=== PATIENT | male | born 1935 | race Caucasian/White ===

== ENCOUNTER 2018-01-31 13:28 | Inpatient (IN) | payer OTHER ==
[~2018-01-31] VITALS: Ht 179.1 cm; Wt 83.7 kg
[2018-01-31] MEDS ORDERED: SODIUM CHLORIDE 0.9% 1000ML 1,000 ML IV ONE ×2 (13:44→20:11)
[2018-01-31 14:48] LABS: HEMATOCRIT 36.8 % (42-54); MEAN CORPUSCULAR HEMOGLOBIN 31.3 pg (27.0-33.0); MEAN CORPUSCULAR HGB CONC 33.5 g/dL (32.0-36.0); MEAN CORPUSCULAR VOLUME 93.4 fL (79-99); PLATELET COUNT (AUTO) 179 K/uL (130-400); RED BLOOD CELL COUNT(AUTO) 3.94 MIL/uL (4.50-6.20); RED CELL DISTRIBUTION WIDTH 14.2 % (11.0-15.5); WHITE BLOOD COUNT (AUTO) 6.4 K/uL (4.8-10.8)
[2018-01-31 15:01] LABS: CARBON DIOXIDE 25 mmol/L (21-32); CHLORIDE 100 mmol/L (101-111); GLOMERULAR FILTR. RATE CALC 76 mL/min (>60); GLUCOSE,RANDOM 113 mg/dL (70-105); POTASSIUM 3.6 mmol/L (3.5-5.1); SODIUM SERUM 137 mmol/L (136-145); UREA NITROGEN, BLOOD 26 mg/dL (7-18)
[2018-01-31 15:06] LABS: ALANINE AMINOTRANSFERASE 13 U/L (12-78); ALBUMIN 2.2 g/dL (3.5-5.0); ASPARTATE AMINOTRANSFERASE 19 U/L (10-37); BILIRUBIN,TOTAL 1.7 mg/dL (0.2-1.0); CREATINE KINASE, TOTAL 54 U/L (21-232); TOTAL PROTEIN, SERUM 5.3 g/dL (6.0-8.3)
[2018-01-31 15:12] LABS: LIPASE < 50 U/L (114-286)
[2018-01-31 16:04] LABS: APPEARANCE,URINE Clear (CLEAR); BILIRUBIN,URINE Moderate (NEGATIVE); GLUCOSE, URINE (UA) Negative (NEGATIVE); KETONES,URINE Trace mg/dL (NEGATIVE); LEUKOCYTE ESTERASE ,URINE Small (NEGATIVE); NITRATE,URINE Positive (NEGATIVE); OCCULT BLOOD,URINE Negative (NEGATIVE); PROTEIN,URINE POS 1+ (NEGATIVE)
[2018-01-31 16:15] LABS: COLOR,URINE Dark Yellow (YELLOW)
[2018-01-31 16:41] LABS: BACTERIA,URINE Few /HPF (None Seen); FINE GRANULAR CASTS,URINE 0-2 /LPF (None Seen); RBC,URINE None Seen /HPF (0-1); WBC,URINE 0-1 /HPF (0-1)
[2018-01-31 17:00] LABS: BAND NEUTROPHILS % (MANUAL) 24 % (0-2); LYMPHOCYTES % (MANUAL) 7 % (22-44); MAN.DIFF COMMENT-IMPRESSION MANUAL DIFFERENTIAL; MONOCYTES % (MANUAL) 5 % (2-9); SEGMENTED NEUTROPHILS % 64 % (40-70)
[2018-01-31 17:01] LABS: PLATELET MORPHOLOGY COMMENT ADEQUATE
[2018-01-31 22:15] VITALS: BP 117/73
[2018-01-31] MEDS ORDERED: MORPHINE SULFATE 2 MG/ML 1ML SYG IVP PRN (23:30)
[2018-01-31] MEDS ORDERED: DEXTROSE 50%-WATER 50 ML DISP.SYRIN IV PRN (23:30)
[2018-01-31] MEDS ORDERED: ONDANSETRON HCL MDV 20ML 2 MG/ML VIAL IVP PRN (23:30)
[2018-01-31] MEDS ORDERED: GLUCAGON 1MG KIT 1 MG ML IM PRN (23:30)
[2018-02-01 00:25] VITALS: BP 112/71
[2018-02-01] MEDS: SODIUM CHLORIDE 0.9% 1000ML 1,000 ML IV SCH ×4 (04:21→22:38)
[2018-02-01 04:24] LABS: HEMATOCRIT 36.2 % (42-54); MEAN CORPUSCULAR HEMOGLOBIN 32.5 pg (27.0-33.0); MEAN CORPUSCULAR HGB CONC 35.2 g/dL (32.0-36.0); MEAN CORPUSCULAR VOLUME 92.4 fL (79-99); PLATELET COUNT (AUTO) 200 K/uL (130-400); RED BLOOD CELL COUNT(AUTO) 3.92 MIL/uL (4.50-6.20); RED CELL DISTRIBUTION WIDTH 14.3 % (11.0-15.5); WHITE BLOOD COUNT (AUTO) 5.2 K/uL (4.8-10.8)
[2018-02-01 04:33] LABS: CREATININE 0.9 mg/dL (0.5-1.5); POTASSIUM 3.5 mmol/L (3.5-5.1)
[2018-02-01 04:40] VITALS: BP 121/67
[2018-02-01] MEDS: INSULIN R NPO SSI SQ SCH ×4 (06:00→18:00)
[2018-02-01 08:02] VITALS: BP 110/78
[2018-02-01] MEDS: FUROSEMIDE 10 MG/ML 2ML VIAL IVP SCH ×2 (08:34→20:55)
[2018-02-01] MEDS: PANTOPRAZOLE 40 MG/VIAL IVP SCH (09:02)
[2018-02-01 11:47] VITALS: BP 113/71
[2018-02-01 16:09] VITALS: BP 117/68
[2018-02-01 19:25] VITALS: BP 100/72
[2018-02-02 00:45] VITALS: BP 117/73
[2018-02-02 04:40] VITALS: BP 116/80
[2018-02-02] MEDS: INSULIN R NPO SSI SQ SCH ×4 (06:00→18:00)
[2018-02-02 06:16] LABS: HEMATOCRIT 38.7 % (42-54); MEAN CORPUSCULAR HEMOGLOBIN 31.4 pg (27.0-33.0); MEAN CORPUSCULAR HGB CONC 33.8 g/dL (32.0-36.0); PLATELET COUNT (AUTO) 263 K/uL (130-400); RED BLOOD CELL COUNT(AUTO) 4.16 MIL/uL (4.50-6.20); RED CELL DISTRIBUTION WIDTH 14.4 % (11.0-15.5); WHITE BLOOD COUNT (AUTO) 6.9 K/uL (4.8-10.8)
[2018-02-02 06:32] LABS: ALBUMIN 1.9 g/dL (3.5-5.0); CREATININE 1.2 mg/dL (0.5-1.5); POTASSIUM 3.5 mmol/L (3.5-5.1); TOTAL PROTEIN, SERUM 5.4 g/dL (6.0-8.3)
[2018-02-02 08:00] VITALS: BP 105/72
[2018-02-02] MEDS: PANTOPRAZOLE 40 MG/VIAL IVP SCH ×2 (09:00→09:28)
[2018-02-02] MEDS: FUROSEMIDE 10 MG/ML 2ML VIAL IVP SCH ×2 (09:19→20:26)
[2018-02-02 11:04] VITALS: BP 113/79
[2018-02-02 16:00] VITALS: BP 108/70
[2018-02-02] MEDS: SODIUM CHLORIDE 0.9% 1000ML 1,000 ML IV SCH (18:04)
[2018-02-02 19:00] VITALS: BP 116/78
[2018-02-03] VITALS (7 sets, daily range): BP systolic 107–137; BP diastolic 57–84
[2018-02-03] MEDS ORDERED: MORPHINE SULFATE 4 MG/1ML SYG ONE ×2 (00:40→22:19)
[2018-02-03] MEDS: SODIUM CHLORIDE 0.9% 1000ML 1,000 ML IV SCH ×4 (00:54→21:26)
[2018-02-03] MEDS ORDERED: METOPROLOL TARTRATE 1 MG/ML 5ML VIAL IV ONE (04:10)
[2018-02-03] MEDS: INSULIN R NPO SSI SQ SCH ×3 (05:38→23:57)
[2018-02-03 06:02] LABS: MEAN CORPUSCULAR HEMOGLOBIN 32.4 pg (27.0-33.0); MEAN CORPUSCULAR VOLUME 92.6 fL (79-99); PLATELET COUNT (AUTO) 237 K/uL (130-400); RED BLOOD CELL COUNT(AUTO) 3.88 MIL/uL (4.50-6.20); WHITE BLOOD COUNT (AUTO) 5.2 K/uL (4.8-10.8)
[2018-02-03 06:21] LABS: ALBUMIN 1.8 g/dL (3.5-5.0); BILIRUBIN,TOTAL 1.3 mg/dL (0.2-1.0); CREATININE 1.5 mg/dL (0.5-1.5); POTASSIUM 3.5 mmol/L (3.5-5.1); TOTAL PROTEIN, SERUM 5.1 g/dL (6.0-8.3)
[2018-02-03] MEDS: FUROSEMIDE 10 MG/ML 2ML VIAL IVP SCH ×2 (08:28→20:11)
[2018-02-03] MEDS: PANTOPRAZOLE 40 MG/VIAL IVP SCH (08:29)
[2018-02-03] MEDS: METOPROLOL TARTRATE 1 MG/ML 5ML VIAL IV PRN ×2 (11:54→23:45)
[2018-02-04] MEDS ORDERED: KETOROLAC TROMETHAMINE 30MG/ML ONE (03:36)
[2018-02-04] MEDS ORDERED: KETOROLAC TROMETHAMINE 30MG/ML IV PRN (03:45)
[2018-02-04 04:00] VITALS: BP 96/52
[2018-02-04 04:32] LABS: BASOPHILS % (AUTO) 0.1 % (0.0-5.0); LYMPHOCYTES % (AUTO) 2.1 % (21.0-51.0); MEAN CORPUSCULAR HEMOGLOBIN 32.5 pg (27.0-33.0); MEAN CORPUSCULAR VOLUME 92.9 fL (79-99); MONOCYTES % (AUTO) 2.8 % (3.0-13.0); PLATELET COUNT (AUTO) 167 K/uL (130-400); RED BLOOD CELL COUNT(AUTO) 3.98 MIL/uL (4.50-6.20); RED CELL DISTRIBUTION WIDTH 14.9 % (11.0-15.5)
[2018-02-04 04:39] LABS: MAGNESIUM 1.4 mg/dL (1.80-2.40); POTASSIUM 3.3 mmol/L (3.5-5.1)
[2018-02-04] MEDS: INSULIN R NPO SSI SQ SCH (05:16)
[2018-02-04] MEDS: SODIUM CHLORIDE 0.9% 1000ML 1,000 ML IV SCH (06:21)
[2018-02-04 07:41] VITALS: BP 97/58
[2018-02-04] MEDS: FUROSEMIDE 10 MG/ML 2ML VIAL IVP SCH (09:00)
[2018-02-04] MEDS: PANTOPRAZOLE 40 MG/VIAL IVP SCH (09:19)
[2018-02-04] MEDS ORDERED: DIATR MEGLU/DIATRIZOATE SODIUM 30 ML BOTTLE ONE (09:46)
== END 2018-02-04 10:19 | disposition expired | DRG 388 ==
LOC: EDH 13:28 → EDHIP 15:32 → 3CH 22:44
PROVIDERS: ADMIT Family Medicine; ATTEND Family Medicine
DX: K56.609 Unspecified intestinal obstruction, unspecified as to partial versus complete obstruction (principal); E43 Unspecified severe protein-calorie malnutrition; J90 Pleural effusion, not elsewhere classified; R18.8 Other ascites; I31.3 Pericardial effusion (noninflammatory); C16.9 Malignant neoplasm of stomach, unspecified; E11.9 Type 2 diabetes mellitus without complications; R64 Cachexia; I10 Essential (primary) hypertension; I25.10 Atherosclerotic heart disease of native coronary artery without angina pectoris; Z68.26 Body mass index [BMI] 26.0-26.9, adult; Z85.028 Personal history of other malignant neoplasm of stomach; Z80.7 Family history of other malignant neoplasms of lymphoid, hematopoietic and related tissues; Z82.49 Family history of ischemic heart disease and other diseases of the circulatory system
CPT/HCPCS: 36415; 71045; 74018; 74176; 80048; 80053; 81001; 82550; 82948; 83605; 83690; 83735; 84484; 85025; 85027; 87040; 92950; C9113; J1885; J1940; J2270; J3490; J7030; Q9963